=== PATIENT | male | born 1955 | race Hispanic/Latino ===

== ENCOUNTER 2018-10-30 12:20 | Inpatient (IN) | payer MEDICARE ==
[2018-10-30] MEDS ORDERED: PERCOCET 5/325 PO ONE (13:26)
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
[2018-10-30 14:27] LABS: BUN/Creatinine Ratio 10; Blood Urea Nitrogen 5 mg/dL (9-20); Calcium 8.9 mg/dL (8.4-10.2); Hemolysis Index 8
--- NOTE | 2018-10-30 14:30 | XRay Report ---
LEFT FEMUR: HISTORY: Leg pain AP and lateral views of the femur demonstrate normal mineralization and contours for this patient's age. Left femoral head osteonecrosis is again noted. The remainder of the femur is within normal limits. IMPRESSION: Left femoral head osteonecrosis.
--- NOTE | 2018-10-30 14:30 | XRay Report ---
AP PELVIS: HISTORY: Fall, pain. The femoral heads are deformed and sclerotic consistent with advanced osteonecrosis with femoral head collapse. The pelvic bones are intact. There are moderate degenerative changes of both hip joints. No fracture or bone lesion is identified. IMPRESSION: Bilateral femoral head osteonecrosis with fragmentation/collapse. Advanced degenerative changes at both hips.
--- NOTE | 2018-10-30 14:31 | XRay Report ---
LEFT KNEE, 3 views: History: Left knee pain. The bony architecture is intact without evidence of fracture or dislocation. No significant soft tissue abnormality is seen. IMPRESSION: Left knee within normal limits.
[2018-10-30] MEDS ORDERED: DILAUDID IV ONE (14:53)
[2018-10-30] MEDS ORDERED: NACL 0.9% 1000 ML 2,000 ML IV ONE (14:53)
[2018-10-30] MEDS ORDERED: ATIVAN IV ONE (14:56)
--- NOTE | 2018-10-30 15:18 | Cat Scan Report ---
CT HEAD WITHOUT CONTRAST: HISTORY: Fall, EtOH yesterday, neck pain. TECHNIQUE: Sequential 2.5mm CT images. COMPARISON: none. FINDINGS: Cerebral Parenchyma: Within normal limits. Cerebellum: Within normal limits. Brainstem: Within normal limits. Ventricles: Normal. Sella: Normal. Extra-axial spaces: Normal. Basal Cisterns: Normal. Intracranial Hemorrhage: None. Midline Shift: None. Calvarium: Normal. Sinuses: Retained secretions are identified in the right frontal sinus. The remaining visualized sinuses are adequately aerated. Mastoid Air Cells: Normal. Visualized Orbits: Normal. IMPRESSION: Cranial CT scan within normal limits.
--- NOTE | 2018-10-30 15:20 | Cat Scan Report ---
CT SCAN OF THE CERVICAL SPINE: HISTORY: Fall, EtOH yesterday, neck pain. TECHNIQUE: Contiguous 1.25 mm axial images of the cervical spine were obtained. Sagittal and coronal reformatted images. FINDINGS: There is been previous anterior fusion from C4-6. Moderate to severe degenerative disc disease with circumferential spurring is identified at C3-4, C4-5, C5-6 and C6-7. Mild diffuse facet arthropathy is also identified. Multilevel central canal narrowing as suspected from C3-7. Multilevel neural foraminal narrowing is also suspected. There is no evidence for displaced fracture, subluxation or bone lesion. IMPRESSION: Advanced cervical spondylosis with multilevel central canal and neural foraminal narrowing. Anterior fusion from C4-6. No acute injury is detected.
--- NOTE | 2018-10-30 15:22 | Cat Scan Report ---
CT PELVIS WITHOUT CONTRAST History: Fall, hip pain. Technique: Helical CT with sagittal and coronal reformatted images. Findings: Advanced osteonecrosis with femoral head collapse is identified bilaterally. There are also severe osteoarthritic changes of both hip joints. No evidence for fracture, diastasis or bone lesion. Soft tissues are unremarkable. Mild diverticulosis of the distal colon is identified. The remainder of the pelvic viscera are within normal limits. Impression: Advanced osteonecrosis and degenerative changes at both hips as described. No acute fracture is identified.
[2018-10-30] MEDS ORDERED: ATIVAN PO PRN (15:41)
[2018-10-30] MEDS ORDERED: LIBRIUM PO PRN (15:41)
[2018-10-30] MEDS ORDERED: ATIVAN IV PRN (15:41)
[2018-10-30] MEDS ORDERED: ACTICIN TP ONE (15:42)
[2018-10-30] MEDS ORDERED: FOLVITE 1 MG, INFUVITE 10 ML in NACL 0.9% 1000 ML 1,000 ML IV ONE (16:00)
[2018-10-30 16:33] LABS: Basophils % (Auto) 0.3 % (0.0-1.8); Eosinophils % (Auto) 0.2 % (0.0-4.3); Hematocrit 40.4 % (35.5-45.6); Hemoglobin 13.7 gm/dl (11.8-15.2); Lymphocytes # (Auto) 2.9 K/mm3 (1.2-5.4); Lymphocytes % (Auto) 21.8 % (13.4-35.0); Mean Corpuscular HGB Conc 34 % (32-34); Mean Corpuscular Volume 100 fl (84-94); Monocytes # (Auto) 1.7 K/mm3 (0.0-0.8); Monocytes % (Auto) 12.5 % (0.0-7.3); Platelet Count 191 K/mm3 (140-440); Red Blood Count 4.05 M/mm3 (3.65-5.03); Red Cell Distribution Width 12.1 % (13.2-15.2)
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
[2018-10-30] MEDS ORDERED: NACL 0.9% 1000 ML IV ONE (17:29)
[2018-10-30] MEDS ORDERED: PROVENTIL IH PRN (17:29)
[2018-10-30] MEDS ORDERED: SODIUM CHLORIDE FLUSH SYRINGE 10 ML IV PRN (17:29)
[2018-10-30] MEDS ORDERED: PROAIR IH PRN (17:35)
--- NOTE | 2018-10-30 19:31 | XRay Report ---
FINAL REPORT EXAM: XR CHEST 1V AP HISTORY: cough TECHNIQUE: AP portable view of the chest PRIORS: None. FINDINGS: Lines, tubes, and devices: N/A Lungs and pleura: Trachea is normal in position. Lungs are clear of infiltrate, pleural effusion, vas cular congestion, or pneumothorax. Cardiomediastinal silhouette: Cardiac and mediastinal silhouettes are unremarkable. Other: Bony structures are intact. Postsurgical changes in the lower cervical spine are noted. IMPRESSION: No acute cardiopulmonary process seen.
[2018-10-30] MEDS ORDERED: ATIVAN ONE (19:49)
[2018-10-30] MEDS: ATIVAN IV PRN (19:53)
[2018-10-30 20:02] LABS: Bacteria,Urine 1+ /HPF (Negative); Bilirubin,Urine NEG (Negative); Blood,Urine NEG (Negative); Color,Urine Straw (Yellow); Mucus,Urine FEW /HPF; Protein,Urine <15 mg/dL mg/dL (Negative); Urobilinogen,Urine < 2.0 mg/dL (<2.0)
[2018-10-30 20:05] LABS: RBC,Urine < 1.0 /HPF (0.0-6.0); WBC,Urine < 1.0 /HPF (0.0-6.0)
[2018-10-30] MEDS: BROVANA NEBU IH SCH (21:30)
[2018-10-30] MEDS: PULMICORT IH SCH (21:30)
[2018-10-30] MEDS: SODIUM CHLORIDE FLUSH SYRINGE 10 ML IV SCH (22:50)
[2018-10-31] MEDS: ATIVAN IV PRN ×2 (03:19→20:37)
[2018-10-31] MEDS: TYLENOL PO PRN (03:19)
[2018-10-31 04:22] LABS: Basophils # (Auto) 0.1 K/mm3 (0.0-0.1); Basophils % (Auto) 0.6 % (0.0-1.8); Eosinophils # (Auto) 0.1 K/mm3 (0.0-0.4); Eosinophils % (Auto) 0.7 % (0.0-4.3); Hematocrit 38.2 % (35.5-45.6); Hemoglobin 13.2 gm/dl (11.8-15.2); Lymphocytes # (Auto) 3.4 K/mm3 (1.2-5.4); Lymphocytes % (Auto) 26.7 % (13.4-35.0); Mean Corpuscular HGB Conc 35 % (32-34); Mean Corpuscular Volume 99 fl (84-94); Monocytes # (Auto) 1.4 K/mm3 (0.0-0.8); Monocytes % (Auto) 11.1 % (0.0-7.3); Platelet Count 189 K/mm3 (140-440); Red Blood Count 3.87 M/mm3 (3.65-5.03); Red Cell Distribution Width 12.3 % (13.2-15.2)
[2018-10-31 04:38] LABS: BUN/Creatinine Ratio 13; Blood Urea Nitrogen 5 mg/dL (9-20); Calcium 8.6 mg/dL (8.4-10.2); Hemolysis Index 6
[2018-10-31] MEDS: PULMICORT IH SCH ×2 (07:52→19:50)
[2018-10-31] MEDS: BROVANA NEBU IH SCH ×2 (07:52→19:50)
[2018-10-31] MEDS ORDERED: TERAZOSIN HCL 1 MG PO SCH (10:00)
[2018-10-31] MEDS ORDERED: NON-FORMULARY (Budesonide/Formoterol Fumarate [Symbicort 160-4.5 Mcg Inhaler] 10.2 GM) IH SCH (10:00)
[2018-10-31] MEDS: TOPROL XL PO SCH (10:06)
[2018-10-31] MEDS: LEVAQUIN 750MG/150ML 750 MG/150 ML BAG IV SCH (10:06)
[2018-10-31] MEDS: SODIUM CHLORIDE FLUSH SYRINGE 10 ML IV SCH ×2 (10:06→21:48)
[2018-10-31] MEDS: MINIPRESS PO SCH (10:12)
[2018-10-31] MEDS ORDERED: AFLURIA QUAD 2018-2019 SYRINGE IM ONE (12:00)
--- NOTE | 2018-10-31 12:57 | Consultation ---
History of Present Illness - Reason for Consult Consult date: 10/31/18 Reason for consult: Mental Health Evaluation Requesting physician: DOMENICO MCBRIDE - Chief Complaint Chief complaint: "Hello" - History of Present Psychiatric Illness 63-year-old gentleman with a history of alcohol abuse and arthritis. Psychiatry was consulted to see the patient for ETOH. Today the patient is calm, but asked to be seen tomorrow. Medications and Allergies Allergies Allergy/AdvReac Type Severity Reaction Status Date / Time Penicillins Allergy Unknown Verified 10/30/18 13:07 Home Medications Medication Instructions Recorded Confirmed Last Taken Type Tramadol HCl [traMADol] 50 mg PO QDAY PRN 12/23/14 10/30/18 12/24/14 History Albuterol Sulfate [Ventolin HFA] 2 puff IH Q4H PRN 10/30/18 10/30/18 Unknown History AtorvaSTATin [Lipitor] 20 mg PO QHS 10/30/18 10/30/18 Unknown History Budesonide/Formoterol Fumarate 10.2 gm IH DAILY 10/30/18 10/30/18 Unknown History [Symbicort 160-4.5 Mcg Inhaler] Metoprolol Xl [Metoprolol 25 mg PO QDAY 10/30/18 10/30/18 Unknown History SUCCINATE ER TAB] Terazosin HCl 1 mg PO DAILY 10/30/18 10/30/18 Unknown History Active Meds: Active Medications Acetaminophen (Tylenol) 650 mg PO Q4H PRN PRN Reason: Pain MILD(1-3)/Fever >100.5/[place] Last Admin: 10/31/18 03:19 Dose: 650 mg Documented by: Albuterol (Proventil) 2.5 mg IH Q4HRT PRN PRN Reason: Shortness Of Breath Arformoterol Tartrate (Brovana Nebu) 15 mcg IH Q12HRT [facility] Last Admin: 10/31/18 07:52 Dose: 15 mcg Documented by: Atorvastatin Calcium (Lipitor) 20 mg PO QHS [facility] Last Admin: 10/30/18 22:49 Dose: 20 mg Documented by: Budesonide (Pulmicort) 0.5 mg IH Q12HRT [facility] Last Admin: 10/31/18 07:52 Dose: 0.5 mg Documented by: Chlordiazepoxide HCl (Librium) 50 mg PO Q1HR PRN PRN Reason: CIWA-Ar 8-15 Levofloxacin/Dextrose (Levaquin 750mg/150ml) 750 mg in 150 mls @ 100 mls/hr IV Q24HR [facility]; Protocol Last Admin: 10/31/18 10:06 Dose: 100 mls/hr Documented by: Lorazepam (Ativan) 2 mg IV Q1HR PRN PRN Reason: CIWA-Ar 8-15 Last Admin: 10/31/18 03:19 Dose: 2 mg Documented by: Lorazepam (Ativan) 4 mg PO Q1HR PRN PRN Reason: CIWA-Ar 16-25 Lorazepam (Ativan) 4 mg IV Q15MIN PRN PRN Reason: CIWA-Ar >25 Metoprolol Succinate (Toprol Xl) 25 mg PO QDAY [facility] Last Admin: 10/31/18 10:06 Dose: 25 mg Documented by: Ondansetron HCl (Zofran) 4 mg IV Q8H PRN PRN Reason: Nausea And Vomiting Prazosin HCl (Minipress) 1 mg PO QDAY [facility] Last Admin: 10/31/18 10:12 Dose: 1 mg Documented by: Sodium Chloride (Sodium Chloride Flush Syringe 10 Ml) 10 ml IV BID [facility] Last Admin: 10/31/18 10:06 Dose: 10 ml Documented by: Sodium Chloride (Sodium Chloride Flush Syringe 10 Ml) 10 ml IV PRN PRN PRN Reason: LINE FLUSH Last Admin: 10/31/18 03:20 Dose: 10 ml Documented by: Tramadol HCl (Ultram) 50 mg PO QDAY PRN PRN Reason: Pain Past psychiatric history - Past Medical History Past Medical History: GERD Past Surgical History: No surgical history - past Psychiatric treatment and history psychiatric treatment history: Hx of Alcohol Abuse. Denies a fam psy hx. Mental Status Exam - Vital signs Last Vital Signs Temp 97.8 F 10/31/18 11:59 Pulse 109 H 10/31/18 11:59 Resp 20 10/31/18 11:59 BP 135/86 10/31/18 11:59 Pulse Ox 95 10/31/18 11:59 - Exam Narrative exam: the MSe could not be complete because the patient asked to be seen tomorrow. Results Result Diagrams: 10/31/18 03:33 10/31/18 03:33 Abnormal lab results 10/30/18 10/30/18 10/30/18 Range/Units 13:55 13:55 16:21 WBC 13.3 H (4.5-11.0) K/mm3 MCV 100 H (84-94) fl MCH 34 H (28-32) pg MCHC (32-34) % RDW 12.1 L (13.2-15.2) % [place] % (Auto) 12.5 H (0.0-7.3) % [place] # 1.7 H (0.0-0.8) K/mm3 Seg Neutrophils # 8.7 H (1.8-7.7) K/mm3 Sodium 136 L (137-145) mmol/L Potassium (3.6-5.0) mmol/L BUN 5 L (9-20) mg/dL Creatinine 0.5 L (0.8-1.5) mg/dL Glucose 104 H (75-100) mg/dL Lactic Acid (0.7-2.0) mmol/L Total Creatine Kinase 323 H (55-170) units/L Salicylates (2.8-20.0) mg/dL Acetaminophen (10.0-30.0) ug/mL 10/30/18 10/30/18 10/30/18 Range/Units 16:21 16:21 16:21 WBC (4.5-11.0) K/mm3 MCV (84-94) fl MCH (28-32) pg MCHC (32-34) % RDW (13.2-15.2) % [place] % (Auto) (0.0-7.3) % [place] # (0.0-0.8) K/mm3 Seg Neutrophils # (1.8-7.7) K/mm3 Sodium (137-145) mmol/L Potassium (3.6-5.0) mmol/L BUN (9-20) mg/dL Creatinine (0.8-1.5) mg/dL Glucose (75-100) mg/dL Lactic Acid 3.30 H* (0.7-2.0) mmol/L Total Creatine Kinase (55-170) units/L Salicylates < 0.3 L (2.8-20.0) mg/dL Acetaminophen < 5.0 L (10.0-30.0) ug/mL 10/31/18 10/31/18 Range/Units 03:33 03:33 WBC 12.9 H (4.5-11.0) K/mm3 MCV 99 H (84-94) fl MCH 34 H (28-32) pg MCHC 35 H (32-34) % RDW 12.3 L (13.2-15.2) % [place] % (Auto) 11.1 H (0.0-7.3) % [place] # 1.4 H (0.0-0.8) K/mm3 Seg Neutrophils # 7.9 H (1.8-7.7) K/mm3 Sodium (137-145) mmol/L Potassium 3.3 L (3.6-5.0) mmol/L BUN 5 L (9-20) mg/dL Creatinine 0.4 L (0.8-1.5) mg/dL Glucose 73 L (75-100) mg/dL Lactic Acid (0.7-2.0) mmol/L Total Creatine Kinase (55-170) units/L Salicylates (2.8-20.0) mg/dL Acetaminophen (10.0-30.0) ug/mL All other labs normal. Assessment and Plan Assessment and plan: Impression: Hx of Alcohol Abuse. Today the patent is calm, but asked to be seen tomorrow. Mild tremors noted (etoh). Recommendation/Plan: Asses the patient in 24 hours. Continue CIWA. Staffed with Dr Christi Shaw.
[2018-10-31] MEDS ORDERED: K-DUR PO NR (17:55)
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
[2018-10-31] MEDS: ULTRAM PO PRN (20:35)
[2018-11-01 05:28] LABS: Basophils # (Auto) 0.1 K/mm3 (0.0-0.1); Basophils % (Auto) 0.6 % (0.0-1.8); Eosinophils # (Auto) 0.2 K/mm3 (0.0-0.4); Eosinophils % (Auto) 2.2 % (0.0-4.3); Hematocrit 38.1 % (35.5-45.6); Hemoglobin 13.2 gm/dl (11.8-15.2); Lymphocytes # (Auto) 2.8 K/mm3 (1.2-5.4); Lymphocytes % (Auto) 25.3 % (13.4-35.0); Mean Corpuscular HGB Conc 35 % (32-34); Mean Corpuscular Volume 99 fl (84-94); Monocytes # (Auto) 1.4 K/mm3 (0.0-0.8); Monocytes % (Auto) 12.6 % (0.0-7.3); Platelet Count 181 K/mm3 (140-440); Red Blood Count 3.85 M/mm3 (3.65-5.03); Red Cell Distribution Width 12.2 % (13.2-15.2)
[2018-11-01 05:51] LABS: BUN/Creatinine Ratio 8; Blood Urea Nitrogen 4 mg/dL (9-20); Calcium 8.6 mg/dL (8.4-10.2); Hemolysis Index 9
[2018-11-01] MEDS: PULMICORT IH SCH ×2 (07:20→21:25)
[2018-11-01] MEDS: BROVANA NEBU IH SCH ×2 (07:20→21:25)
[2018-11-01] MEDS: LEVAQUIN 750MG/150ML 750 MG/150 ML BAG IV SCH (10:44)
[2018-11-01] MEDS: TOPROL XL PO SCH (10:45)
[2018-11-01] MEDS: ULTRAM PO PRN (10:45)
[2018-11-01] MEDS: SODIUM CHLORIDE FLUSH SYRINGE 10 ML IV SCH ×2 (10:46→22:18)
[2018-11-01] MEDS: MINIPRESS PO SCH (10:46)
[2018-11-01] MEDS: TYLENOL PO PRN (13:59)
--- NOTE | 2018-11-01 14:01 | Progress Note ---
Subjective - Reason for Consult Consult date: 11/01/18 Reason for consult: Psychiatric Follow-up Evaluation - Chief Complaint Chief complaint: "I feel okay." Patient is a 63-year-old gentleman with a history of alcohol abuse and arthritis. Psychiatry was consulted to see the patient for ETOH Abuse. He states, " I'm here because I fell and hurt my left hip." Today the patient is calm and cooperative during the assessment. He states, "I've been drinking more than usual. I've been drinking everyday. On average I drink 6 -8 beers daily." He reports decrease energy, appetite, and sleep (improved with alcohol consumption). He denies anhedonia. He verbalizes that his alcohol consumption increased after his 's in 07/23. Per patient he has never been diagnosed with psychiatric illness nor has he ever taken any medication for psychiatric related symptoms. He denies SI/HI's, A/VH's ("only when drinking"), and delusions. He endorses the following withdrawal symptoms: fidgety, anxious, tremors, and cravings. Current Psychiatric Medications: Patient denies. Past Psychiatric History: No previous psychiatric diagnosis; no previous inpatient psychiatric hospitalization; no previous suicide attempts; no outpatient psychiatrist. History of Alcohol/Substance Abuse: Alcohol- daily, 6-8 beers, last drink- 10/29/18, first drink- age 17. History of Abuse/Trauma: Patient denies sexual, physical, and mental abuse. Social History: 11th grade- highest level of education; Disability- $1148.00 per month; limited support system; no children/ 3 dogs. Family History of Psychiatric Illness/Substance Abuse: Patient denies. Mental Status Exam - Vital signs Last Vital Signs Temp 97.6 F 11/01/18 11:56 Pulse 104 H 11/01/18 11:56 Resp 18 11/01/18 11:56 BP 150/90 11/01/18 11:56 Pulse Ox 99 11/01/18 11:56 - Exam Narrative exam: Mental Status Exam Appearance: calm, cooperative; in hospital attire Behavior: regular eye contact Speech: regular rate and tone Mood: " I feel okay"; depressed/anxious Affect: congruent to mood Thought Process: circumstantial Thought Content: no gestures of SI/HI's, A/VH's, and delusions Motor Activity: laying in bed Cognition: A/O x3 Insight: fair to variable Judgment: variable Assessment and Plan Impression: Hx of Alcohol Abuse. MDD, recurrent, severe without psychosis/Alcohol Use Disorder, severe. Today the patient is calm and cooperative during the assessment. The following withdrawal symptoms include: anxiety, tremors, irritability. Recommendation/Plan: 1. Will reassess the patient in 24 hours. 2. Continue CIWA for alcohol withdrawal. 3. At this time patient refuses medications. Recommended Zoloft. Discussed the benefits/risks. He prefer talk therapy at this time. Will staff with Dr. Darren Shaw.
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
--- NOTE | 2018-11-01 17:17 | Consultation ---
History of Present Illness - [facility] Consult date: 11/01/18 Consult reason: joint pain History of present illness: 62-year-old male who complains of bilateral hip pain patient states he lost his balance and fell recently. He states that he has had hip pain off and on now for about 10 years patient does have a history of chronic alcohol abuse, she states the right hip more painful over the last couple years then the left, Past History Past Medical History: GERD Past Surgical History: No surgical history Social history: single Family history: hypertension Medications and Allergies Allergies Allergy/AdvReac Type Severity Reaction Status Date / Time Penicillins Allergy Unknown Verified 10/30/18 13:07 Home Medications Medication Instructions Recorded Confirmed Last Taken Type Tramadol HCl [traMADol] 50 mg PO QDAY PRN 12/23/14 10/30/18 12/24/14 History Albuterol Sulfate [Ventolin HFA] 2 puff IH Q4H PRN 10/30/18 10/30/18 Unknown History AtorvaSTATin [Lipitor] 20 mg PO QHS 10/30/18 10/30/18 Unknown History Budesonide/Formoterol Fumarate 10.2 gm IH DAILY 10/30/18 10/30/18 Unknown History [Symbicort 160-4.5 Mcg Inhaler] Metoprolol Xl [Metoprolol 25 mg PO QDAY 10/30/18 10/30/18 Unknown History SUCCINATE ER TAB] Terazosin HCl 1 mg PO DAILY 10/30/18 10/30/18 Unknown History Active Meds: Active Medications Acetaminophen (Tylenol) 650 mg PO Q4H PRN PRN Reason: Pain MILD(1-3)/Fever >100.5/[place] Last Admin: 11/01/18 13:59 Dose: 650 mg Documented by: Albuterol (Proventil) 2.5 mg IH Q4HRT PRN PRN Reason: Shortness Of Breath Arformoterol Tartrate (Brovana Nebu) 15 mcg IH Q12HRT [facility] Last Admin: 11/01/18 07:20 Dose: 15 mcg Documented by: Atorvastatin Calcium (Lipitor) 20 mg PO QHS [facility] Last Admin: 10/31/18 21:48 Dose: 20 mg Documented by: Budesonide (Pulmicort) 0.5 mg IH Q12HRT [facility] Last Admin: 11/01/18 07:20 Dose: 0.5 mg Documented by: Chlordiazepoxide HCl (Librium) 50 mg PO Q1HR PRN PRN Reason: CIWA-Ar 8-15 Levofloxacin (Levaquin) 750 mg PO DAILY [facility] Lorazepam (Ativan) 2 mg IV Q1HR PRN PRN Reason: CIWA-Ar 8-15 Last Admin: 10/31/18 20:37 Dose: 2 mg Documented by: Lorazepam (Ativan) 4 mg PO Q1HR PRN PRN Reason: CIWA-Ar 16-25 Lorazepam (Ativan) 4 mg IV Q15MIN PRN PRN Reason: CIWA-Ar >25 Metoprolol Succinate (Toprol Xl) 25 mg PO QDAY [facility] Last Admin: 11/01/18 10:45 Dose: 25 mg Documented by: Ondansetron HCl (Zofran) 4 mg IV Q8H PRN PRN Reason: Nausea And Vomiting Prazosin HCl (Minipress) 1 mg PO QDAY [facility] Last Admin: 11/01/18 10:46 Dose: 1 mg Documented by: Sodium Chloride (Sodium Chloride Flush Syringe 10 Ml) 10 ml IV BID [facility] Last Admin: 11/01/18 10:46 Dose: 10 ml Documented by: Sodium Chloride (Sodium Chloride Flush Syringe 10 Ml) 10 ml IV PRN PRN PRN Reason: LINE FLUSH Last Admin: 10/31/18 03:20 Dose: 10 ml Documented by: Tramadol HCl (Ultram) 50 mg PO QDAY PRN PRN Reason: Pain Last Admin: 11/01/18 10:45 Dose: 50 mg Documented by: Physical Examination - Physical exam Narrative exam: PHYSICAL examination significant findings loose to the musculoskeletal system. Patient is noted to have tenderness over the both hips and groin area active range of motion significantly decreased especially internal/external rotation at both hips Plain x-rays of his pelvis revealed significant osteoarthritis changes in both hips was severe erosion of the joint lines and peripheral osteophytes Eyes: PERRL ENT: Positive: clear oral mucosa Respiratory effort: normal Respiratory: bilateral: CTA Rhythm: regular Heart Sounds: Positive: S1 & S2 General gastrointestinal: Positive: soft, non-tender, non-distended, normal bowel sounds Integumentary: clear, warm, dry Neurologic: Positive: CNII-XII intact, moves all extremities, gait normal. Negative: focal deficits - Cervical Spine Neck pain: none Tenderness with palpation: none Full ROM: yes ROM: flexion: normal ROM: extension: normal ROM: rotation right: normal ROM: rotation left: normal ROM: lateral flexion right: normal ROM: lateral flexion left: normal - Lumbar Spine Back pain: none Tenderness with palpation: none Appearance: normal Full ROM: yes ROM: flexion: normal ROM: extension: normal ROM: rotation right: normal ROM: rotation left: normal ROM: lateral flexion right: normal ROM: lateral flexion left: normal Assessment and Plan Severe osteoarthritis both hips Discussed treatment options with the patient and his first cousin Bernice Yefri, recommend right total hip replacement
[2018-11-02] MEDS: ULTRAM PO PRN (06:00)
[2018-11-02] MEDS: PULMICORT IH SCH ×2 (08:06→21:21)
[2018-11-02] MEDS: BROVANA NEBU IH SCH ×2 (08:06→21:21)
[2018-11-02] MEDS: TOPROL XL PO SCH (09:46)
[2018-11-02] MEDS: MINIPRESS PO SCH (09:47)
[2018-11-02] MEDS ORDERED: LEVAQUIN PO SCH (10:00)
[2018-11-02] MEDS: LEVAQUIN 750MG/150ML 750 MG/150 ML BAG IV SCH (10:20)
[2018-11-02] MEDS: SODIUM CHLORIDE FLUSH SYRINGE 10 ML IV SCH ×2 (10:20→22:42)
[2018-11-02] MEDS ORDERED: LACTATED RINGERS 1,000 ML IV SCH (11:00)
[2018-11-02] MEDS ORDERED: ZEMURON IV ONE (11:27)
[2018-11-02] MEDS ORDERED: XYLOCAINE MPF 2% ONE (11:27)
[2018-11-02] MEDS ORDERED: SUBLIMAZE ONE (11:27)
[2018-11-02] MEDS ORDERED: DIPRIVAN 10 MG/ML IV ONE (11:28)
[2018-11-02] MEDS ORDERED: DILAUDID IV PRN (11:42)
--- NOTE | 2018-11-02 11:49 | Anesthesia Consultation ---
Anesthesia Consult and Med Hx Date of service: 11/02/18 - Airway Anesthetic Teeth Evaluation: Edentulous ROM Head & Neck: Adequate Mental/Hyoid Distance: Inadequate Mallampati Class: Class III Intubation Access Assessment: Possibly Difficult - Pulmonary Exam CTA: Yes - Cardiac Exam Cardiac Exam: RRR - Pre-Operative Health Status ASA Pre-Surgery Classification: ASA3 Proposed Anesthetic Plan: General - Pulmonary Hx Smoking: Yes (45pk yr hx) Hx Respiratory Symptoms: No COPD: Yes (on maintenance inhalers) Home Oxygen Therapy: No - Cardiovascular System Hx Hypertension: Yes Hx Heart Attack/AMI: Yes (2003; no stents or CABG. >4mets functional status) Hx Angina: No Hx Percutaneous Transluminal Coronary Angioplasty (PTCA): No Hx Cardia Arrhythmia: No - Central Nervous System Hx Seizures: No CVA: No Hx Back Pain: Yes - Gastrointestinal Hx Gastroesophageal Reflux Disease: Yes (asymptomatic today) - Endocrine Hx Renal Disease: No Hx Cirrhosis: No (liverdx.) Hx Liver Disease: Yes (hemochromatosis; patient denies liver disease/cirrhosis) Hx Insulin Dependent Diabetes: No Hx Non-Insulin Dependent Diabetes: No Hx Thyroid Disease: No - Hematic Hx Anemia: No - Other Systems Hx Alcohol Use: Yes (hx EtOH abuse; withdrawal symptoms on admission now resolved) Hx Obesity: No - Additional Comments Anesthesia Medical History Comments: No hx anesthetic complications.
--- NOTE | 2018-11-02 11:52 | Anesthesia Day of Surgery ---
Anesthesia Day of Surgery - Day of Surgery Patient Examined: Yes Patient H&P Reviewed: Yes (fall onto left hip but found to have severe OA b/l. Consented for R THR.) Patient is NPO: Yes
[2018-11-02] MEDS ORDERED: ZOFRAN ONE (11:54)
[2018-11-02] MEDS ORDERED: VERSED IV NR (12:00)
--- NOTE | 2018-11-02 12:34 | Progress Note ---
Subjective - Reason for Consult Consult date: 11/02/18 Reason for consult: Psychiatry Follow-up - Chief Complaint Chief complaint: "Hello" 63-year-old gentleman with a history of alcohol abuse and arthritis. Psychiatry was consulted to see the patient for ETOH Abuse. Today the patient is calm and cooperative during the assessment. He stated that he "probably" can stop drinking on his own. He stated that he enjoy alcohol intake. He was able to state that excessive alcohol consumption (etoh) can cause serious medical issues. He denies having a mood do when asked. He denies feeling hopeless and helpless about his alcohol addiction. He denies SI/HI's and AVH's. Mental Status Exam - Vital signs Last Vital Signs Temp 98.5 F 11/02/18 11:26 Pulse 89 11/02/18 11:26 Resp 18 11/02/18 11:26 BP 134/74 11/02/18 11:26 Pulse Ox 97 11/02/18 11:26 - Exam Narrative exam: MSE: Appearance: calm, cooperative Behavior: regular eye contact Speech: regular rate and tone Mood: "fine" Affect: congruent to mood Thought Process: linear Thought Content: denies SI/HI's and A/VH's Motor Activity: laying in bed Cognition: A/O x3 Insight: appropriate Judgment: appropriate Assessment and Plan Impression: Hx of Alcohol Abuse. Today the patent is calm and cooperative during the assessment. No tremors noted noted (etoh). Recommendation/Plan: Discussed the importance to abstain from alcohol consumption (etoh). Psy sign off. Dispo: The patient can follow up with [facility] for rehab services. Will staff with Dr Benitez.
[2018-11-02] MEDS ORDERED: ACD-A 500 ML IV ONE (12:42)
[2018-11-02] MEDS ORDERED: TRANEXAMIC ACID IV ONE (12:46)
[2018-11-02] MEDS ORDERED: NACL 0.9% IR ONE ×2 (12:48)
[2018-11-02] MEDS ORDERED: MORPHINE IM ONE (13:30)
[2018-11-02] MEDS ORDERED: MARCAINE 0.5% INFILTRATI ONE ×2 (13:30)
[2018-11-02] MEDS ORDERED: NACL 0.9% IV ONE (13:30)
[2018-11-02] MEDS ORDERED: TORADOL IV ONE (13:30)
[2018-11-02] MEDS ORDERED: SODIUM CHLORIDE FLUSH SYRINGE 10 ML IV NR (14:00)
--- NOTE | 2018-11-02 14:07 | Procedure Note ---
Date of procedure: 11/02/18 Pre-op diagnosis: severe arthritis right hip Post-op diagnosis: same Procedure: Right total hip replacement Procedure The patient was brought to the OR and placed Table in supine position following induction and intubation the patient was then turned into the left lateral decubitus position at which point the right hip was prepped and draped in the usual sterile manner. A timeout procedure was done to identify the patient and the correct operative site. A lateral incision was made over the proximal femur this was taken down sharply through skin and subcutaneous down to the fascia next the fascia naty was incised longitudinally and a Charnley retractor was used to remove the soft tissue out of the operative field the vastus lateralis and gluteus medius tendons were identified using the anterior approach the structures were released using the Bovie the patient was noted to have severe osteoarthritic changes with osteophytes forming the acetabulum attempt at the dislocation was performed however we are unable to dislocate the hip Proximal femur was osteotomized using the resection guide, the leg was then manipulated to more of the acetabulum visualizing the acetabular socket the patient again was noted to have severe osteoarthritic changes in both the acetabulum and femoral head. The acetabulum was subsequently reamed to 55 mm diameter this was followed by insertion of the acetabular component in the correct version one bone screw was used to stabilize the acetabular component within the acetabulum and a neutral acetabular liner was inserted next the proximal femur. Beginning with the IMImobile cutter reamer and rasping a #5 stem was selected followed by sizing of the neck length a +10 neutral neck was selected and present taken through range of motion and was found to be stable following this the trial components were removed the proximal femur hip joint were copiously irrigated this is then followed by insertion of the final components stepping a #5 femoral stem with a neutral a 32 mm.head again the components were reduced and taken thru a full range of motion and found to be stable. Next the soft tissue were repaired in the usual fashion, a cocktail of toradol,morphine sulphate,marcaine and normal saline was injected into the surround soft tissue for post op pain control. she tolerated the procedure and there were no complications. Taken to PACU in stable in condition. Anesthesia: GETA Surgeon: ISAIAS CORONADO Asbestos Wire Finisher: DOMENICO ALVAREZ Estimated blood loss: other (200 mL) Pathology: list (right femoral head) Specimen disposition: to lab Condition: stable Disposition: PACU
--- NOTE | 2018-11-02 15:57 | Post Anesthesia Evaluation ---
- Post Anesthesia Evaluation Patient Participated: Yes Airway Patent: Yes Stable Respiratory Function: Yes Nausea/Vomiting: No Temp > 96.8F: Yes Pain Manageable: Yes Adequeate Hydration: Yes Anesthesia Complications: No
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
[2018-11-02] MEDS: COLACE PO SCH (22:40)
[2018-11-03] MEDS: MORPHINE IV PRN ×4 (01:58→19:41)
[2018-11-03] MEDS: ULTRAM PO PRN ×2 (03:15→21:46)
[2018-11-03 06:35] LABS: Hematocrit 33.2 % (35.5-45.6); Hemoglobin 11.4 gm/dl (11.8-15.2); Lymphocytes # (Auto) 1.1 K/mm3 (1.2-5.4); Lymphocytes % (Auto) 6.2 % (13.4-35.0); Mean Corpuscular HGB Conc 34 % (32-34); Mean Corpuscular Volume 99 fl (84-94); Monocytes % (Auto) 11.4 % (0.0-7.3); Platelet Count 196 K/mm3 (140-440); Red Blood Count 3.36 M/mm3 (3.65-5.03); Red Cell Distribution Width 11.9 % (13.2-15.2)
[2018-11-03 06:54] LABS: BUN/Creatinine Ratio 15; Blood Urea Nitrogen 6 mg/dL (9-20); Calcium 8.6 mg/dL (8.4-10.2); Hemolysis Index 12
[2018-11-03 06:56] LABS: Creatine Kinase MB 4.8 ng/mL (0.0-4.0)
[2018-11-03] MEDS: BROVANA NEBU IH SCH ×2 (07:19→20:10)
[2018-11-03] MEDS: PULMICORT IH SCH ×2 (07:19→20:10)
[2018-11-03] MEDS: LOVENOX SUB-Q SCH (09:27)
[2018-11-03] MEDS: COLACE PO SCH ×2 (09:27→21:46)
[2018-11-03] MEDS: LEVAQUIN 750MG/150ML 750 MG/150 ML BAG IV SCH (09:27)
[2018-11-03] MEDS: SODIUM CHLORIDE FLUSH SYRINGE 10 ML IV SCH ×2 (09:28→21:47)
[2018-11-03] MEDS: TOPROL XL PO SCH (09:51)
[2018-11-03] MEDS: MINIPRESS PO SCH (09:51)
[2018-11-03] MEDS ORDERED: LOVENOX SUB-Q SCH (10:00)
[2018-11-03 10:20] LABS: Creatine Kinase MB 4.3 ng/mL (0.0-4.0)
--- NOTE | 2018-11-03 12:25 | XRay Report ---
PELVIS RADIOGRAPH INDICATION: Postop evaluation, status post total hip replacement. COMPARISON: 10/30/2018. FINDINGS: Portable, frontal pelvic radiograph, 2 images demonstrate interval right hip arthroplasty without evidence of loosening. Expected adjacent soft tissue air noted. Few vascular calcifications. Stable advanced left hip deformity with heterogeneous/sclerotic/collapsed femoral head/osteonecrosis. Intact pelvic articulation. Mild lower lumbar spine degenerative changes. Nonobstructive bowel gas pattern. CONCLUSION: Interval post right hip replacement expected changes with stable extensive left hip deformity, as described. Thank you for the opportunity to participate in this patient's care.
--- NOTE | 2018-11-03 14:38 | Progress Note ---
Assessment and Plan s/p right THR doing ok continue observation and rehab Subjective Date of service: 11/03/18 Interval history: c/o incisional pain right hip otherwise doing well Objective Vital signs: Vital Signs - 12hr 11/03/18 11/03/18 11/03/18 04:39 07:15 07:30 Temperature 97.9 F 97.0 F L Pulse Rate 92 H 102 H Pulse Rate [ 87 Bilateral Throughout] Respiratory 20 20 Rate Respiratory 18 Rate [Bilateral Throughout] Blood Pressure 147/83 152/87 O2 Sat by Pulse 97 97 Oximetry 11/03/18 11/03/18 07:40 10:00 Temperature Pulse Rate Pulse Rate [ 87 Bilateral Throughout] Respiratory Rate Respiratory 18 Rate [Bilateral Throughout] Blood Pressure O2 Sat by Pulse 97 Oximetry Narrative Exam: right hip - post op dressing intact,minimal drainage, compartment soft, distal n/v intact - Labs CBC & BMP: 11/03/18 05:55 11/03/18 05:55 Labs: Abnormal lab results 11/03/18 11/03/18 11/03/18 Range/Units 05:55 05:55 05:55 WBC 17.7 H (4.5-11.0) K/mm3 RBC 3.36 L (3.65-5.03) M/mm3 Hgb 11.4 L (11.8-15.2) gm/dl Hct 33.2 L (35.5-45.6) % MCV 99 H (84-94) fl MCH 34 H (28-32) pg RDW 11.9 L (13.2-15.2) % Lymph % (Auto) 6.2 L (13.4-35.0) % [place] % (Auto) 11.4 H (0.0-7.3) % Lymph # 1.1 L (1.2-5.4) K/mm3 [place] # 2.0 H (0.0-0.8) K/mm3 Seg Neutrophils % 82.4 H (40.0-70.0) % Seg Neutrophils # 14.6 H (1.8-7.7) K/mm3 BUN 6 L (9-20) mg/dL Creatinine 0.4 L (0.8-1.5) mg/dL Glucose 115 H (75-100) mg/dL Total Creatine Kinase 373 H (55-170) units/L CK-MB (CK-2) 4.8 H (0.0-4.0) ng/mL 11/03/18 Range/Units 09:19 WBC (4.5-11.0) K/mm3 RBC (3.65-5.03) M/mm3 Hgb (11.8-15.2) gm/dl Hct (35.5-45.6) % MCV (84-94) fl MCH (28-32) pg RDW (13.2-15.2) % Lymph % (Auto) (13.4-35.0) % [place] % (Auto) (0.0-7.3) % Lymph # (1.2-5.4) K/mm3 [place] # (0.0-0.8) K/mm3 Seg Neutrophils % (40.0-70.0) % Seg Neutrophils # (1.8-7.7) K/mm3 BUN (9-20) mg/dL Creatinine (0.8-1.5) mg/dL Glucose (75-100) mg/dL Total Creatine Kinase 352 H (55-170) units/L CK-MB (CK-2) 4.3 H (0.0-4.0) ng/mL
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
[2018-11-03 17:08] LABS: Creatine Kinase MB 3.9 ng/mL (0.0-4.0)
[2018-11-04] MEDS: ZOFRAN IV PRN ×2 (00:27→22:19)
[2018-11-04] MEDS: MORPHINE IV PRN ×2 (00:27→22:16)
[2018-11-04 05:08] LABS: Basophils % (Auto) 0.1 % (0.0-1.8); Eosinophils # (Auto) 0.2 K/mm3 (0.0-0.4); Eosinophils % (Auto) 1.2 % (0.0-4.3); Hematocrit 31.9 % (35.5-45.6); Lymphocytes # (Auto) 2.5 K/mm3 (1.2-5.4); Lymphocytes % (Auto) 16.4 % (13.4-35.0); Mean Corpuscular HGB Conc 35 % (32-34); Mean Corpuscular Volume 99 fl (84-94); Monocytes # (Auto) 2.2 K/mm3 (0.0-0.8); Monocytes % (Auto) 14.5 % (0.0-7.3); Platelet Count 198 K/mm3 (140-440); Red Blood Count 3.23 M/mm3 (3.65-5.03); Red Cell Distribution Width 12.2 % (13.2-15.2)
[2018-11-04 05:34] LABS: BUN/Creatinine Ratio 18; Blood Urea Nitrogen 11 mg/dL (9-20); Calcium 8.4 mg/dL (8.4-10.2); Hemolysis Index 3
[2018-11-04] MEDS: COLACE PO SCH ×2 (10:15→22:14)
[2018-11-04] MEDS: LOVENOX SUB-Q SCH (10:15)
[2018-11-04] MEDS: MINIPRESS PO SCH (10:16)
[2018-11-04] MEDS: LEVAQUIN 750MG/150ML 750 MG/150 ML BAG IV SCH (10:17)
[2018-11-04] MEDS: TOPROL XL PO SCH (10:18)
[2018-11-04] MEDS: BROVANA NEBU IH SCH ×2 (13:42→21:13)
[2018-11-04] MEDS: PULMICORT IH SCH ×2 (13:42→21:13)
--- NOTE | 2018-11-04 17:55 | Progress Note ---
Assessment and Plan - Patient Problems (1) Alcohol withdrawal Current Visit: Yes Status: Acute Qualifiers: Complication of substance-induced condition: with perceptual disturbance Qualified Code(s): F10.232 - Alcohol dependence with withdrawal with perceptual disturbance Plan to address problem: ciwa protocol (2) DVT prophylaxis Current Visit: Yes Status: Acute (3) Debility Current Visit: Yes Status: Acute Plan to address problem: awaitn SNF placement (4) Fall Current Visit: Yes Status: Acute (5) Hip arthritis Current Visit: Yes Status: Acute Plan to address problem: Total hip replacement waiting rehabilitation. (6) Sepsis Current Visit: Yes Status: Acute Qualifiers: Sepsis type: sepsis due to unspecified organism Qualified Code(s): A41.9 - Sepsis, unspecified organism Plan to address problem: Resolving with IV antibiotics changed to by mouth. History Interval history: 63-year-old male with a history of hypertension GERD hemochromatosis and EtOH abuse recent falls presents with sepsis currently on IV antibiotics EtOH withdrawal on CIWA protocol. Patient has debility awaiting placement. Hospitalist Physical - Constitutional Vitals: Temp Pulse Resp BP Pulse Ox 98.1 F 109 H 18 117/67 99 11/04/18 17:15 11/04/18 17:15 11/04/18 17:15 11/04/18 17:15 11/04/18 13:42 General appearance: Present: mild distress - EENT Eyes: Present: PERRL, EOM intact ENT: hearing intact, clear oral mucosa, dentition normal - Neck Neck: Present: supple, normal ROM - Respiratory Respiratory: bilateral: CTA - Cardiovascular Rhythm: regular - Extremities Extremities: no ischemia, pulses intact, pulses symmetrical, No edema Peripheral Pulses: within normal limits - Abdominal General gastrointestinal: soft, non-tender, normal bowel sounds - Integumentary Integumentary: Present: clear, warm, dry - Psychiatric Psychiatric: appropriate mood/affect - Neurologic Neurologic: CNII-XII intact Results - Labs CBC & Chem 7: 11/04/18 04:51 11/04/18 04:51 Labs: Laboratory Last Values WBC 15.5 K/mm3 (4.5-11.0) H 11/04/18 04:51 RBC 3.23 M/mm3 (3.65-5.03) L 11/04/18 04:51 Hgb 11.0 gm/dl (11.8-15.2) L 11/04/18 04:51 Hct 31.9 % (35.5-45.6) L 11/04/18 04:51 MCV 99 fl (84-94) H 11/04/18 04:51 MCH 34 pg (28-32) H 11/04/18 04:51 MCHC 35 % (32-34) H 11/04/18 04:51 RDW 12.2 % (13.2-15.2) L 11/04/18 04:51 Plt Count 198 K/mm3 (140-440) 11/04/18 04:51 Lymph % (Auto) 16.4 % (13.4-35.0) 11/04/18 04:51 [place] % (Auto) 14.5 % (0.0-7.3) H 11/04/18 04:51 Eos % (Auto) 1.2 % (0.0-4.3) 11/04/18 04:51 Baso % (Auto) 0.1 % (0.0-1.8) 11/04/18 04:51 Lymph # 2.5 K/mm3 (1.2-5.4) 11/04/18 04:51 [place] # 2.2 K/mm3 (0.0-0.8) H 11/04/18 04:51 Eos # 0.2 K/mm3 (0.0-0.4) 11/04/18 04:51 Baso # 0.0 K/mm3 (0.0-0.1) 11/04/18 04:51 Seg Neutrophils % 67.8 % (40.0-70.0) 11/04/18 04:51 Seg Neutrophils # 10.5 K/mm3 (1.8-7.7) H 11/04/18 04:51 Sodium 135 mmol/L (137-145) L 11/04/18 04:51 Potassium 4.0 mmol/L (3.6-5.0) 11/04/18 04:51 Chloride 98.3 mmol/L (98-107) 11/04/18 04:51 Carbon Dioxide 28 mmol/L (22-30) 11/04/18 04:51 Anion Gap 13 mmol/L 11/04/18 04:51 BUN 11 mg/dL (9-20) 11/04/18 04:51 Creatinine 0.6 mg/dL (0.8-1.5) L 11/04/18 04:51 Estimated GFR > 60 ml/min 11/04/18 04:51 BUN/Creatinine Ratio 18 % 11/04/18 04:51 Glucose 120 mg/dL (75-100) H 11/04/18 04:51 Lactic Acid 0.80 mmol/L (0.7-2.0) 10/31/18 00:02 Calcium 8.4 mg/dL (8.4-10.2) 11/04/18 04:51 Magnesium 2.00 mg/dL (1.7-2.3) 10/30/18 13:55 Total Creatine Kinase 324 units/L (55-170) H 11/03/18 15:43 CK-MB (CK-2) 3.9 ng/mL (0.0-4.0) 11/03/18 15:43 CK-MB (CK-2) Rel Index 1.2 (0-4) 11/03/18 15:43 Urine Color Straw (Yellow) 10/30/18 19:36 Urine Turbidity Clear (Clear) 10/30/18 19:36 Urine pH 7.0 (5.0-7.0) 10/30/18 19:36 Ur Specific [place] 1.005 (1.003-1.030) 10/30/18 19:36 Urine Protein <15 mg/dl mg/dL (Negative) 10/30/18 19:36 Urine Glucose (UA) Neg mg/dL (Negative) 10/30/18 19:36 Urine Ketones Neg mg/dL (Negative) 10/30/18 19:36 Urine Blood Neg (Negative) 10/30/18 19:36 Urine Nitrite Neg (Negative) 10/30/18 19:36 Urine Bilirubin Neg (Negative) 10/30/18 19:36 Urine Urobilinogen < 2.0 mg/dL (<2.0) 10/30/18 19:36 Ur Leukocyte Esterase Neg (Negative) 10/30/18 19:36 Urine WBC (Auto) < 1.0 /HPF (0.0-6.0) 10/30/18 19:36 Urine RBC (Auto) < 1.0 /HPF (0.0-6.0) 10/30/18 19:36 Urine Bacteria (Auto) 1+ /HPF (Negative) 10/30/18 19:36 Urine Mucus Few /HPF 10/30/18 19:36 Salicylates < 0.3 mg/dL (2.8-20.0) L 10/30/18 16:21 Acetaminophen < 5.0 ug/mL (10.0-30.0) L 10/30/18 16:21 Plasma/Serum Alcohol < 0.01 % (0-0.07) 10/30/18 16:21
[2018-11-04] MEDS: ULTRAM PO PRN (18:19)
[2018-11-04] MEDS: SODIUM CHLORIDE FLUSH SYRINGE 10 ML IV SCH (22:00)
[2018-11-05] MEDS: PULMICORT IH SCH ×2 (08:36→19:36)
[2018-11-05] MEDS: BROVANA NEBU IH SCH ×2 (08:36→19:36)
[2018-11-05] MEDS: COLACE PO SCH ×2 (10:52→21:48)
[2018-11-05] MEDS: LEVAQUIN PO SCH (10:52)
[2018-11-05] MEDS: TOPROL XL PO SCH (10:53)
[2018-11-05] MEDS: LOVENOX SUB-Q SCH (10:54)
[2018-11-05] MEDS: MINIPRESS PO SCH (10:54)
[2018-11-05] MEDS: MORPHINE IV PRN ×2 (10:55→21:46)
[2018-11-05] MEDS: SODIUM CHLORIDE FLUSH SYRINGE 10 ML IV SCH ×2 (10:55→21:48)
--- NOTE | 2018-11-05 11:27 | Progress Note ---
Assessment and Plan - Patient Problems (1) Alcohol withdrawal Current Visit: Yes Status: Acute Qualifiers: Complication of substance-induced condition: with perceptual disturbance Qualified Code(s): F10.232 - Alcohol dependence with withdrawal with perceptual disturbance Plan to address problem: ciwa protocol (2) DVT prophylaxis Current Visit: Yes Status: Acute (3) Debility Current Visit: Yes Status: Acute Plan to address problem: generalized weakness debility. Hemodynamically stable from infection ,sepsis awaiting long term facility placement. (4) Fall Current Visit: Yes Status: Acute Plan to address problem: plan is to increase strength as long term facility for fall prevention. (5) Hip arthritis Current Visit: Yes Status: Acute Plan to address problem: Total hip replacement waiting rehabilitation. (6) Sepsis Current Visit: Yes Status: Acute Qualifiers: Sepsis type: sepsis due to unspecified organism Qualified Code(s): A41.9 - Sepsis, unspecified organism Plan to address problem: Resolving patient tolerated change to PO antibiotics changed to by mouth. History Interval history: 63-year-old male with a history of hypertension GERD hemochromatosis and EtOH abuse recent falls presents with sepsis currently on IV antibiotics EtOH withdrawal on CIWA protocol. Patient resting without any concerns alert. Josephine ent continues to have significant debility awaiting placement. Hospitalist Physical - Constitutional Vitals: Temp Pulse Resp BP Pulse Ox 98.2 F 99 H 18 134/76 100 11/05/18 07:14 11/05/18 10:54 11/05/18 08:46 11/05/18 10:54 11/05/18 08:36 General appearance: Present: mild distress - EENT Eyes: Present: PERRL, EOM intact ENT: hearing intact, clear oral mucosa, dentition normal - Neck Neck: Present: supple, normal ROM - Respiratory Respiratory effort: normal Respiratory: bilateral: CTA - Cardiovascular Rhythm: regular - Extremities Extremities: no ischemia, pulses intact, pulses symmetrical, No edema, normal temperature, normal color Peripheral Pulses: within normal limits - Abdominal General gastrointestinal: soft, non-tender, non-distended, normal bowel sounds - Integumentary Integumentary: Present: clear, warm, dry - Psychiatric Psychiatric: appropriate mood/affect - Neurologic Neurologic: CNII-XII intact, other (generalize weakness debility) Results - Labs CBC & Chem 7: 11/04/18 04:51 11/04/18 04:51 Labs: Laboratory Last Values WBC 15.5 K/mm3 (4.5-11.0) H 11/04/18 04:51 RBC 3.23 M/mm3 (3.65-5.03) L 11/04/18 04:51 Hgb 11.0 gm/dl (11.8-15.2) L 11/04/18 04:51 Hct 31.9 % (35.5-45.6) L 11/04/18 04:51 MCV 99 fl (84-94) H 11/04/18 04:51 MCH 34 pg (28-32) H 11/04/18 04:51 MCHC 35 % (32-34) H 11/04/18 04:51 RDW 12.2 % (13.2-15.2) L 11/04/18 04:51 Plt Count 198 K/mm3 (140-440) 11/04/18 04:51 Lymph % (Auto) 16.4 % (13.4-35.0) 11/04/18 04:51 [place] % (Auto) 14.5 % (0.0-7.3) H 11/04/18 04:51 Eos % (Auto) 1.2 % (0.0-4.3) 11/04/18 04:51 Baso % (Auto) 0.1 % (0.0-1.8) 11/04/18 04:51 Lymph # 2.5 K/mm3 (1.2-5.4) 11/04/18 04:51 [place] # 2.2 K/mm3 (0.0-0.8) H 11/04/18 04:51 Eos # 0.2 K/mm3 (0.0-0.4) 11/04/18 04:51 Baso # 0.0 K/mm3 (0.0-0.1) 11/04/18 04:51 Seg Neutrophils % 67.8 % (40.0-70.0) 11/04/18 04:51 Seg Neutrophils # 10.5 K/mm3 (1.8-7.7) H 11/04/18 04:51 Sodium 135 mmol/L (137-145) L 11/04/18 04:51 Potassium 4.0 mmol/L (3.6-5.0) 11/04/18 04:51 Chloride 98.3 mmol/L (98-107) 11/04/18 04:51 Carbon Dioxide 28 mmol/L (22-30) 11/04/18 04:51 Anion Gap 13 mmol/L 11/04/18 04:51 BUN 11 mg/dL (9-20) 11/04/18 04:51 Creatinine 0.6 mg/dL (0.8-1.5) L 11/04/18 04:51 Estimated GFR > 60 ml/min 11/04/18 04:51 BUN/Creatinine Ratio 18 % 11/04/18 04:51 Glucose 120 mg/dL (75-100) H 11/04/18 04:51 Lactic Acid 0.80 mmol/L (0.7-2.0) 10/31/18 00:02 Calcium 8.4 mg/dL (8.4-10.2) 11/04/18 04:51 Magnesium 2.00 mg/dL (1.7-2.3) 10/30/18 13:55 Total Creatine Kinase 324 units/L (55-170) H 11/03/18 15:43 CK-MB (CK-2) 3.9 ng/mL (0.0-4.0) 11/03/18 15:43 CK-MB (CK-2) Rel Index 1.2 (0-4) 11/03/18 15:43 Urine Color Straw (Yellow) 10/30/18 19:36 Urine Turbidity Clear (Clear) 10/30/18 19:36 Urine pH 7.0 (5.0-7.0) 10/30/18 19:36 Ur Specific [place] 1.005 (1.003-1.030) 10/30/18 19:36 Urine Protein <15 mg/dl mg/dL (Negative) 10/30/18 19:36 Urine Glucose (UA) Neg mg/dL (Negative) 10/30/18 19:36 Urine Ketones Neg mg/dL (Negative) 10/30/18 19:36 Urine Blood Neg (Negative) 10/30/18 19:36 Urine Nitrite Neg (Negative) 10/30/18 19:36 Urine Bilirubin Neg (Negative) 10/30/18 19:36 Urine Urobilinogen < 2.0 mg/dL (<2.0) 10/30/18 19:36 Ur Leukocyte Esterase Neg (Negative) 10/30/18 19:36 Urine WBC (Auto) < 1.0 /HPF (0.0-6.0) 10/30/18 19:36 Urine RBC (Auto) < 1.0 /HPF (0.0-6.0) 10/30/18 19:36 Urine Bacteria (Auto) 1+ /HPF (Negative) 10/30/18 19:36 Urine Mucus Few /HPF 10/30/18 19:36 Salicylates < 0.3 mg/dL (2.8-20.0) L 10/30/18 16:21 Acetaminophen < 5.0 ug/mL (10.0-30.0) L 10/30/18 16:21 Plasma/Serum Alcohol < 0.01 % (0-0.07) 10/30/18 16:21
[2018-11-06] MEDS: BROVANA NEBU IH SCH ×3 (09:46→20:00)
[2018-11-06] MEDS: PULMICORT IH SCH ×2 (09:46→15:52)
[2018-11-06 09:50] LABS: Basophils % (Auto) 0.4 % (0.0-1.8); Eosinophils # (Auto) 0.6 K/mm3 (0.0-0.4); Eosinophils % (Auto) 4.8 % (0.0-4.3); Hematocrit 27.5 % (35.5-45.6); Hemoglobin 9.5 gm/dl (11.8-15.2); Lymphocytes # (Auto) 1.8 K/mm3 (1.2-5.4); Lymphocytes % (Auto) 13.4 % (13.4-35.0); Mean Corpuscular HGB Conc 35 % (32-34); Mean Corpuscular Volume 99 fl (84-94); Monocytes # (Auto) 2.1 K/mm3 (0.0-0.8); Monocytes % (Auto) 15.9 % (0.0-7.3); Platelet Count 235 K/mm3 (140-440); Red Blood Count 2.77 M/mm3 (3.65-5.03); Red Cell Distribution Width 12.2 % (13.2-15.2)
[2018-11-06 10:01] LABS: BUN/Creatinine Ratio 15; Blood Urea Nitrogen 6 mg/dL (9-20); Calcium 8.1 mg/dL (8.4-10.2); Hemolysis Index 6
[2018-11-06] MEDS: LOVENOX SUB-Q SCH (10:04)
[2018-11-06] MEDS: COLACE PO SCH ×2 (10:05→21:10)
[2018-11-06] MEDS: TOPROL XL PO SCH (10:05)
[2018-11-06] MEDS: MINIPRESS PO SCH (10:05)
[2018-11-06] MEDS: LEVAQUIN PO SCH (10:06)
--- NOTE | 2018-11-06 14:07 | XRay Report ---
PROCEDURE: XR CHEST 1V AP TECHNIQUE: Chest radiograph single view. HISTORY: leukocytosis and cough FINDINGS: Single frontal view of the chest was acquired and compared to the prior examination of 2018. The heart is normal in size. The lungs appear clear. The pleura and mediastinum are within normal lynch its. IMPRESSION: No active disease in the chest This document is electronically signed by Joseph Santoro MD., November 03 2018 05:11:52 PM ET
[2018-11-06] MEDS: MORPHINE IV PRN ×2 (15:16→21:09)
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
--- NOTE | 2018-11-06 17:49 | Progress Note ---
Subjective Date of service: 11/06/18 Interval history: c/o incisional pain right hip otherwise doing well Objective Vital signs: Vital Signs - 12hr 11/06/18 11/06/18 11/06/18 07:20 08:00 11:05 Temperature 97.5 F L 97.5 F L 98.0 F Pulse Rate 90 Pulse Rate [ Bilateral Throughout] Respiratory 16 16 22 Rate Respiratory Rate [Bilateral Throughout] Blood Pressure 125/75 123/67 Blood Pressure 125/75 [Right] O2 Sat by Pulse 99 Oximetry 11/06/18 11/06/18 11/06/18 13:47 15:26 15:53 Temperature 98 F 98.3 F Pulse Rate 106 H Pulse Rate [ 101 H Bilateral Throughout] Respiratory 20 20 Rate Respiratory 20 Rate [Bilateral Throughout] Blood Pressure 115/64 Blood Pressure 123/67 [Right] O2 Sat by Pulse 96 98 Oximetry 11/06/18 16:12 Temperature Pulse Rate Pulse Rate [ 104 H Bilateral Throughout] Respiratory Rate Respiratory 20 Rate [Bilateral Throughout] Blood Pressure Blood Pressure [Right] O2 Sat by Pulse Oximetry - Labs CBC & BMP: 11/06/18 09:28 11/06/18 09:28 Labs: Abnormal lab results 11/06/18 11/06/18 Range/Units 09:28 09:28 WBC 13.3 H (4.5-11.0) K/mm3 RBC 2.77 L (3.65-5.03) M/mm3 Hgb 9.5 L (11.8-15.2) gm/dl Hct 27.5 L (35.5-45.6) % MCV 99 H (84-94) fl MCH 34 H (28-32) pg MCHC 35 H (32-34) % RDW 12.2 L (13.2-15.2) % [place] % (Auto) 15.9 H (0.0-7.3) % Eos % (Auto) 4.8 H (0.0-4.3) % [place] # 2.1 H (0.0-0.8) K/mm3 Eos # 0.6 H (0.0-0.4) K/mm3 Seg Neutrophils # 8.7 H (1.8-7.7) K/mm3 Sodium 133 L (137-145) mmol/L BUN 6 L (9-20) mg/dL Creatinine 0.4 L (0.8-1.5) mg/dL Glucose 110 H (75-100) mg/dL Calcium 8.1 L (8.4-10.2) mg/dL
[2018-11-06] MEDS: SODIUM CHLORIDE FLUSH SYRINGE 10 ML IV SCH (21:10)
[2018-11-07] MEDS: MINIPRESS PO SCH (09:01)
[2018-11-07] MEDS: ULTRAM PO PRN ×2 (09:02→18:11)
[2018-11-07] MEDS: COLACE PO SCH ×2 (09:03→22:29)
[2018-11-07] MEDS: LOVENOX SUB-Q SCH (09:03)
[2018-11-07] MEDS: LEVAQUIN PO SCH (09:03)
[2018-11-07] MEDS: BROVANA NEBU IH SCH ×2 (09:10→20:02)
[2018-11-07] MEDS: SODIUM CHLORIDE FLUSH SYRINGE 10 ML IV SCH ×3 (09:10→22:29)
[2018-11-07] MEDS: PULMICORT IH SCH ×2 (09:10→20:02)
[2018-11-07] MEDS: TOPROL XL PO SCH (12:00)
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
[2018-11-08] MEDS: PULMICORT IH SCH ×2 (08:39→20:09)
[2018-11-08] MEDS: BROVANA NEBU IH SCH ×2 (08:39→20:09)
[2018-11-08] MEDS: TOPROL XL PO SCH (09:38)
[2018-11-08] MEDS: MINIPRESS PO SCH (09:38)
[2018-11-08] MEDS: COLACE PO SCH ×2 (09:39→21:07)
[2018-11-08] MEDS: LEVAQUIN PO SCH (09:39)
[2018-11-08] MEDS: LOVENOX SUB-Q SCH (09:40)
[2018-11-08] MEDS: MORPHINE IV PRN (09:40)
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
[2018-11-08] MEDS: SODIUM CHLORIDE FLUSH SYRINGE 10 ML IV SCH ×2 (11:34→11:35)
[2018-11-09 06:03] LABS: Hematocrit 27.6 % (35.5-45.6); Hemoglobin 9.6 gm/dl (11.8-15.2); Mean Corpuscular HGB Conc 35 % (32-34); Mean Corpuscular Volume 97 fl (84-94); Platelet Count 348 K/mm3 (140-440); Red Blood Count 2.84 M/mm3 (3.65-5.03)
[2018-11-09] MEDS: SODIUM CHLORIDE FLUSH SYRINGE 10 ML IV SCH ×3 (06:19→21:17)
[2018-11-09 06:26] LABS: BUN/Creatinine Ratio 10; Blood Urea Nitrogen 5 mg/dL (9-20); Calcium 8.4 mg/dL (8.4-10.2); Hemolysis Index 5
[2018-11-09] MEDS: PULMICORT IH SCH ×2 (09:05→20:54)
[2018-11-09] MEDS: BROVANA NEBU IH SCH ×2 (09:10→20:54)
[2018-11-09] MEDS: LOVENOX SUB-Q SCH (09:47)
[2018-11-09] MEDS: COLACE PO SCH ×2 (09:47→21:16)
[2018-11-09] MEDS: TOPROL XL PO SCH (09:48)
[2018-11-09] MEDS: LEVAQUIN PO SCH (09:48)
[2018-11-09] MEDS: MORPHINE IV PRN (10:02)
[2018-11-09] MEDS: MINIPRESS PO SCH (12:33)
[2018-11-09] MEDS: NORCO 5/325 PO PRN ×2 (14:24→22:47)
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
[2018-11-09] MEDS: ULTRAM PO PRN (19:03)
[2018-11-10] MEDS: PULMICORT IH SCH ×2 (08:29→20:45)
[2018-11-10] MEDS: BROVANA NEBU IH SCH ×2 (08:29→20:45)
[2018-11-10] MEDS: MINIPRESS PO SCH ×2 (08:51→10:00)
[2018-11-10] MEDS: COLACE PO SCH ×3 (08:52→22:07)
[2018-11-10] MEDS: LOVENOX SUB-Q SCH ×2 (08:52→10:00)
[2018-11-10] MEDS: LEVAQUIN PO SCH ×2 (08:52→10:00)
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
--- NOTE | 2018-11-10 14:02 | Progress Note ---
Assessment and Plan s/p right THR doing ok continue observation and rehab Subjective Date of service: 11/10/18 Interval history: c/o incisional pain right hip otherwise doing well Objective Vital signs: Vital Signs - 12hr 11/10/18 11/10/18 11/10/18 03:00 04:39 07:59 Temperature 98.1 F 98.6 F Pulse Rate 88 86 Pulse Rate [ 17 L Left Radial] Respiratory 18 18 Rate Blood Pressure 116/72 114/65 O2 Sat by Pulse 96 97 Oximetry 11/10/18 11/10/18 08:51 11:53 Temperature 98.0 F Pulse Rate 86 119 H Pulse Rate [ Left Radial] Respiratory 18 Rate Blood Pressure 114/65 95/58 O2 Sat by Pulse 96 Oximetry Narrative Exam: right hip - incision healing well, no sign of infection - Labs CBC & BMP: 11/09/18 05:34 11/09/18 05:34 Labs: Abnormal lab results 11/09/18 Range/Units 12:40 POC Glucose 113 H (70-105)
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
[2018-11-10] MEDS: NORCO 5/325 PO PRN ×2 (14:57→20:11)
[2018-11-10] MEDS: TOPROL XL PO SCH (17:33)
[2018-11-10] MEDS: SODIUM CHLORIDE FLUSH SYRINGE 10 ML IV SCH ×2 (17:34→22:07)
[2018-11-11] MEDS: NORCO 5/325 PO PRN ×4 (01:07→20:37)
[2018-11-11] MEDS: BROVANA NEBU IH SCH ×2 (07:51→20:48)
[2018-11-11] MEDS: PULMICORT IH SCH ×2 (07:51→20:48)
[2018-11-11] MEDS: TOPROL XL PO SCH (10:32)
[2018-11-11] MEDS: MINIPRESS PO SCH (10:33)
[2018-11-11] MEDS: LEVAQUIN PO SCH (10:33)
[2018-11-11] MEDS: LOVENOX SUB-Q SCH (10:34)
[2018-11-11] MEDS: COLACE PO SCH ×2 (10:34→21:38)
[2018-11-11] MEDS: SODIUM CHLORIDE FLUSH SYRINGE 10 ML IV SCH ×2 (10:35→21:38)
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
[2018-11-12] MEDS: NORCO 5/325 PO PRN ×5 (05:42→23:45)
[2018-11-12] MEDS: PULMICORT IH SCH ×2 (07:41→19:55)
[2018-11-12] MEDS: BROVANA NEBU IH SCH ×2 (07:41→19:55)
[2018-11-12] MEDS: COLACE PO SCH ×2 (11:11→22:00)
[2018-11-12] MEDS: LEVAQUIN PO SCH (11:11)
[2018-11-12] MEDS: TOPROL XL PO SCH (11:11)
[2018-11-12] MEDS: MINIPRESS PO SCH (11:12)
[2018-11-12] MEDS: LOVENOX SUB-Q SCH (11:13)
[2018-11-12] MEDS: SODIUM CHLORIDE FLUSH SYRINGE 10 ML IV SCH ×2 (11:13→21:47)
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
[2018-11-13] MEDS: PULMICORT IH SCH ×2 (07:43→19:54)
[2018-11-13] MEDS: BROVANA NEBU IH SCH ×2 (07:43→19:54)
[2018-11-13] MEDS: LEVAQUIN PO SCH (10:22)
[2018-11-13] MEDS: COLACE PO SCH ×2 (10:22→22:12)
[2018-11-13] MEDS: LOVENOX SUB-Q SCH (10:22)
[2018-11-13] MEDS: MINIPRESS PO SCH (10:22)
[2018-11-13] MEDS: NORCO 5/325 PO PRN ×3 (11:26→20:20)
[2018-11-13] MEDS: TOPROL XL PO SCH (15:30)
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
[2018-11-13] MEDS: SODIUM CHLORIDE FLUSH SYRINGE 10 ML IV SCH ×2 (18:06→22:12)
--- NOTE | 2018-11-13 18:12 | Progress Note ---
Assessment and Plan Status post right total hip replacement doing well awaiting snf facility placement Subjective Date of service: 11/13/18 Interval history: c/o incisional pain right hip otherwise doing well Objective Vital signs: Vital Signs - 12hr 11/13/18 11/13/18 11/13/18 07:20 10:22 11:01 Temperature 98.0 F 97.7 F Pulse Rate 94 H 94 H 107 H Respiratory 18 20 Rate Blood Pressure 126/74 126/74 Blood Pressure 100/65 [Right] O2 Sat by Pulse 97 99 Oximetry 11/13/18 11/13/18 15:28 15:30 Temperature 98.0 F Pulse Rate 90 90 Respiratory 18 Rate Blood Pressure 114/61 114/61 Blood Pressure [Right] O2 Sat by Pulse 97 Oximetry Narrative Exam: right hip - incision healing well, no sign of infection - Labs CBC & BMP: 11/09/18 05:34 11/09/18 05:34
[2018-11-13] MEDS: ATIVAN IV PRN (23:41)
[2018-11-14 04:49] LABS: Hematocrit 30.3 % (35.5-45.6); Hemoglobin 10.3 gm/dl (11.8-15.2); Mean Corpuscular HGB Conc 34 % (32-34); Mean Corpuscular Volume 97 fl (84-94); Platelet Count 472 K/mm3 (140-440); Red Blood Count 3.11 M/mm3 (3.65-5.03); Red Cell Distribution Width 12.2 % (13.2-15.2)
[2018-11-14] MEDS: NORCO 5/325 PO PRN ×3 (08:58→20:44)
[2018-11-14] MEDS: LEVAQUIN PO SCH (09:01)
[2018-11-14] MEDS: COLACE PO SCH ×2 (09:02→21:43)
[2018-11-14] MEDS: TOPROL XL PO SCH (09:02)
[2018-11-14] MEDS: SODIUM CHLORIDE FLUSH SYRINGE 10 ML IV SCH ×2 (09:02→21:44)
[2018-11-14] MEDS: LOVENOX SUB-Q SCH (09:02)
[2018-11-14] MEDS: MINIPRESS PO SCH (09:07)
[2018-11-14] MEDS: BROVANA NEBU IH SCH ×2 (19:24→20:44)
[2018-11-14] MEDS: PULMICORT IH SCH ×2 (19:24→20:44)
[2018-11-15 07:59] VITALS: BP 116/76
[2018-11-15] MEDS: COLACE PO SCH (08:01)
[2018-11-15] MEDS: TOPROL XL PO SCH (08:01)
[2018-11-15] MEDS: BROVANA NEBU IH SCH (08:16)
[2018-11-15] MEDS: PULMICORT IH SCH (08:17)
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
== END 2018-11-15 10:25 | disposition home health service (06) | DRG 854 ==
LOC: ED 12:20 → 3A 17:30 → 3B-SURG 11-02 16:29
PROVIDERS: ADMIT Internal Medicine; ATTEND Internal Medicine
PROC: 0SR90JZ Replacement of Right Hip Joint with Synthetic Substitute, Open Approach (ICD-10-PCS; principal; 2018-11-02)
DX: A41.9 Sepsis, unspecified organism (principal); F10.232 Alcohol dependence with withdrawal with perceptual disturbance; M87.852 Other osteonecrosis, left femur; I10 Essential (primary) hypertension; K21.9 Gastro-esophageal reflux disease without esophagitis; M16.0 Bilateral primary osteoarthritis of hip; J44.9 Chronic obstructive pulmonary disease, unspecified; Y90.0 Blood alcohol level of less than 20 mg/100 ml; I25.2 Old myocardial infarction; Z82.49 Family history of ischemic heart disease and other diseases of the circulatory system; Z88.0 Allergy status to penicillin; Z79.51 Long term (current) use of inhaled steroids; Z79.899 Other long term (current) drug therapy; Z71.41 Alcohol abuse counseling and surveillance of alcoholic; Z71.6 Tobacco abuse counseling; V48.4XXA Person boarding or alighting a car injured in noncollision transport accident, initial encounter; Y93.89 Activity, other specified; Y92.098 Other place in other non-institutional residence as the place of occurrence of the external cause; Y99.8 Other external cause status
CPT/HCPCS: 36415; 70450; 71045; 72125; 72170; 72192; 80048; 80320; 81001; 82140; 82550; 82553; 82962; 83735; 85014; 85018; 85025; 85027; 87040; 88304; 88311; 88341; 88342; 90686; 93005; 93010; 94640; 94760; G0378; A4217; A9270-GY; C1776; G0480; J1170; J1650; J1885; J1956; J2060; J2250; J2270; J2405; J2704; J3010; J7030; J7120

== ENCOUNTER 2019-10-01 14:37 | Emergency (ER) | payer MEDICARE ==
--- NOTE | 2019-10-01 15:57 | Emergency Department Report ---
Blank Doc - Documentation Documentation: 64-year-old male that presents with right hip pain. This initial assessment/diagnostic orders/clinical plan/treatment(s) is/are subject to change based on patient's health status, clinical progression and re- assessment by fellow clinical providers in the ED. Further treatment and workup at subsequent clinical providers discretion. Patient/guardians urged not to elope from the ED as their condition may be serious if not clinically assessed and managed. Initial orders include: 1- Patient sent to [facility] for further evaluation and treatment 2- xrays
--- NOTE | 2019-10-01 16:35 | XRay Report ---
RIGHT HIP 3 VIEWS INDICATION / CLINICAL INFORMATION: hip pain. COMPARISON: 01/09/2019 FINDINGS: A right hip prosthesis is present and appears be normally located. End-stage degenerative changes see n in the left hip joint. No other significant skeletal abnormality. No change from 01/09/2019 Signer Name: Jeffery Amaral MD FACKai Signed: 10/01/2019 4:31 PM Workstation Name: [id number]
[2019-10-01] MEDS ORDERED: KETOROLAC 30 MG/1 ML INJ IM ONE (18:38)
--- NOTE | 2019-10-01 18:44 | Emergency Department Report ---
HPI - General Chief Complaint: Extremity Problem,Nontraumatic Time Seen by Provider: 10/01/19 15:55 - HPI HPI: 64-year-old male presents to the emergency department with a complaint of a three-day history of right hip pain. This is sometimes associated with some mild right lower back pain. He denies any fall, trauma, injury or obvious inciting event. He has not taken anything for her symptoms prior to presentation. He has a past medical history of osteoarthritis, asthma, COPD, coronary artery disease, hemachromatosis. He has a history of right hip replacement surgery about one year ago. He denies any numbness or paresthesias, problems with bowel or bladder, or any neurological deficits. The patient is able to walk with a cane, which is his baseline ambulatory status. ED Past Medical Hx - Past Medical History Previous Medical History?: Yes Hx Hypertension: Yes Hx Heart Attack/AMI: Yes (2003; no stents or CABG. >4mets functional status) Hx GERD: Yes Hx Liver Disease: Yes (hemochromatosis; patient denies liver disease/cirrhosis) Hx Renal Disease: No Hx Arthritis: Yes (IN HIPS, KNEES AND LOWER BACK) Hx Seizures: No Hx Asthma: No Hx COPD: Yes (on maintenance inhalers) - Surgical History Past Surgical History?: Yes Additional Surgical History: Right hip surgery - Social History Smoking Status: Never Smoker Substance Use Type: None - Medications Home Medications: Home Medications Medication Instructions Recorded Confirmed Last Taken Type Albuterol Sulfate [Ventolin HFA] 2 puff IH Q4H PRN 10/30/18 10/30/18 Unknown History AtorvaSTATin [Lipitor] 20 mg PO QHS 10/30/18 10/30/18 Unknown History Budesonide/Formoterol Fumarate 10.2 gm IH DAILY 10/30/18 10/30/18 Unknown History [Symbicort 160-4.5 Mcg Inhaler] Metoprolol Xl [Metoprolol 25 mg PO QDAY 10/30/18 10/30/18 Unknown History SUCCINATE ER TAB] Terazosin HCl 1 mg PO DAILY 10/30/18 10/30/18 Unknown History Aspirin [Aspirin TAB] 325 mg PO QDAY #30 tablet 11/10/18 Unknown Rx Multivitamin with Folic Acid [One 400 mcg PO DAILY #30 tablet 11/10/18 Unknown Rx Daily Multivitamin Tablet] Prazosin 1 mg PO QDAY #30 capsule 11/10/18 Unknown Rx Thiamine [Vitamin B-1] 100 mg PO QDAY #30 tablet 11/10/18 Unknown Rx levoFLOXacin [Levaquin TAB] 750 mg PO Q24HR #3 tablet 11/10/18 Unknown Rx traMADoL [Ultram 50 MG tab] 50 mg PO Q6H PRN #14 tablet 11/10/18 Unknown Rx Cyclobenzaprine [Flexeril] 10 mg PO TID PRN #12 tablet 10/01/19 Unknown Rx Ibuprofen [Motrin 600 MG tab] 600 mg PO Q8H PRN #20 tablet 10/01/19 Unknown Rx ED Review of Systems ROS: Stated complaint: RT HIP PAIN Other details as noted in HPI Comment: All other systems reviewed and negative Constitutional: denies: chills, fever Respiratory: denies: shortness of breath Cardiovascular: denies: chest pain Gastrointestinal: denies: abdominal pain, vomiting Musculoskeletal: arthralgia. denies: joint swelling Skin: denies: rash, lesions Neurological: denies: numbness, paresthesias Physical Exam - Physical Exam Physical Exam: GENERAL: The patient is well-developed well-nourished. HEENT: Normocephalic. Atraumatic. Patient has moist mucous membranes. EYES: Extraocular motions are intact. NECK: Supple. Trachea is midline. CHEST/LUNGS: Clear to auscultation. There is no respiratory distress noted. HEART/CARDIOVASCULAR: Regular. There is no tachycardia. ABDOMEN: There is no abdominal distention. SKIN:Skin is warm and dry. . NEURO: The patient is awake, alert, and oriented. The patient is cooperative. The patient has no focal neurologic deficits. Normal speech. MUSCULOSKELETAL: Mild tenderness to palpation of the right hip. There is no limitation range of motion. There is no evidence of acute injury. ED Medical Decision Making - Radiology Data Radiology results: report reviewed RIGHT HIP 3 VIEWS INDICATION / CLINICAL INFORMATION: hip pain. COMPARISON: 01/09/2019 FINDINGS: A right hip prosthesis is present and appears be normally located. End-stage degenerative changes seen in the left hip joint. No other significant skeletal abnormality. No change from 01/09/2019 Signer Name: Jeffery Amaral MD FACR - Medical Decision Making This patient presents with a three-day history of some atraumatic right hip pain. Sometimes the pain seems to radiate up to the lower back. However negative straight leg raise test so that appears less consistent with sciatica. X-ray was done that shows a right hip prosthesis present and it is not dislocated and there is no other significant skeletal abnormality. Patient was given a shot of Toradol here and will be discharged home with anti- inflammatories and muscle relaxer. He was given referrals for orthopedist and instructed to return to the emergency Department with any worsening of his symptoms or any acute distress. - Differential Diagnosis occult fracture, dislocation, osteoarthritis, bursitis, tendonitis Critical Care Time: No Critical care attestation.: If time is entered above; I have spent that time in minutes in the direct care of this critically ill patient, excluding procedure time. ED Disposition Clinical Impression: Right hip pain Disposition: - TO HOME OR SELFCARE Is pt being admited?: No Condition: Stable Instructions: Arthralgia (ED) Additional Instructions: Please follow up with an orthopedist in the next few days. I have given you a referral for a 2 local orthopedists, Dr. Corona and Joann, to follow up regarding your hip pain. Return to the emergency Department with any worsening of your symptoms or any acute distress. You have been prescribed a medication that can be sedating. Therefore, this medication cannot be taken prior to driving, working, being responsible for children, and cannot be mixed with alcohol of any quantity. Prescriptions: Cyclobenzaprine [Flexeril] 10 mg PO TID PRN #12 tablet PRN Reason: Muscle Spasm Ibuprofen [Motrin 600 MG tab] 600 mg PO Q8H PRN #20 tablet PRN Reason: Pain Referrals: ISAIAS CORONA MD [Staff Physician] - 3-5 Days [facility] [Provider Group] - 3-5 Days Time of Disposition: 18:45
[2019-10-01 19:02] VITALS: BP 138/80
== END 2019-10-01 19:30 | disposition home or self-care (01) ==
LOC: ED 14:37
DX: M25.551 Pain in right hip (principal); I10 Essential (primary) hypertension; I25.2 Old myocardial infarction; K21.9 Gastro-esophageal reflux disease without esophagitis; K76.9 Liver disease, unspecified; M19.90 Unspecified osteoarthritis, unspecified site; J44.9 Chronic obstructive pulmonary disease, unspecified; Z98.890 Other specified postprocedural states; Z79.1 Long term (current) use of non-steroidal anti-inflammatories (NSAID); Z79.899 Other long term (current) drug therapy; Z88.0 Allergy status to penicillin
CPT/HCPCS: 73502; 96372; 99283; J1885